=== PATIENT | male | born 1960 | race African-American/Black ===

== ENCOUNTER 2019-01-20 10:53 | Emergency (ER) | payer MEDICAID ==
[~2019-01-20] VITALS: Ht 182.9 cm; Wt 90.7 kg
[~2019-01-20 10:53] MED LIST: ACETAMINOPHEN-1 EAC1 ORAL; AUGMENTIN 875-1 EAC1 ORAL; BACTRIM DS TAB1 EAC1 ORAL; CLINDAMYCIN HC300 MG ORAL; FLONASE1 SPRAYS NASAL; KEFLEX500 MG ORAL; NKM; PRILOSEC OTC20 MG ORAL; TRAMADOL HCL50 MG ORAL
[2019-01-20 11:15] VITALS: BP 152/75
--- NOTE | 2019-01-20 11:16 | NUR ---
ED Nurse Note: Pt from home came in due to dizziness. Per pt, he woke up this morning and started to have a ''spinning sensation" and diaphoresis with nausea. Admits that he has hx of vertigo. Pt is AAO x4, ambulatory with non labored breathing.
[2019-01-20] MEDS ORDERED: Meclizine 25mg tab ORAL PRN (11:45)
--- NOTE | 2019-01-20 11:50 | NUR ---
ED Nurse Note: Blood/urine collected then sent.
--- NOTE | 2019-01-20 11:53 | Emergency Room Report ---
History of Present Illness General Chief Complaint: Dizziness Source: Patient Present Illness HPI 58-year-old male with no major medical problems other than remote history of peripheral vertigo 15 years ago presents with room spinning dizziness, nausea, vomiting one episode, and diaphoresis that occurred this morning when he woke up. He denies any slurred speech, numbness, tingling, weakness, fevers, headaches, blurred vision, any other symptoms other than does report occasional urinary frequency but attributes it to drinking plenty of water. He has not tried any medications for symptoms, and reports feeling better from his vertigo when he stays still, worse with movement. Allergies: Coded Allergies: CHLORZOXAZONE (Unverified Adverse Reaction, Intermediate, 12/10/14) DIZZINESS Patient History Past Medical History: see triage record Reviewed Nursing Documentation: PMH: Agreed; PSxH: Agreed Nursing Documentation-PMH Past Medical History: No Stated History Hx Asthma: Yes Hx Gastrointestinal Problems: Yes - ACID REFLUX Review of Systems All Other Systems: negative except mentioned in HPI Physical Exam Vital Signs Date Time Temp Pulse Resp B/P (MAP) Pulse Ox O2 Delivery O2 Flow Rate FiO2 01/20/19 11:06 97.7 65 16 97 Room Air 01/20/19 11:15 152/75 Sp02 EP Interpretation: reviewed, normal General Appearance: no apparent distress, alert, non-toxic Head: normocephalic Eyes: bilateral eye normal inspection, bilateral eye PERRL, bilateral eye EOMI ENT: normal ENT inspection, hearing grossly normal, normal pharynx, no angioedema, normal voice, moist mucus membranes Neck: normal inspection, full range of motion, supple, supple/symm/no masses Respiratory: chest non-tender, lungs clear, normal breath sounds, chest symmetrical, palpation of chest normal Cardiovascular #1: normal peripheral pulses, regular rate, rhythm Cardiovascular #2: 2+ radial (R), 2+ radial (L) Gastrointestinal: normal inspection, non tender, soft, no mass, no guarding, no rebound Rectal: deferred Genitourinary: normal inspection, no CVA tenderness Musculoskeletal: back normal, gait/station normal, normal range of motion, non- tender, no calf tenderness Neurologic: alert, responsive, 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, motor strength/tone normal, sensory intact, cerebellar normal, speech normal Psychiatric: judgement/insight normal, memory normal, mood/affect normal Skin: normal color, no rash, warm/dry, normal turgor Lymphatic: no adenopathy Medical Decision Making Diagnostic Impression: Primary Impression: Vertigo ER Course Patient with no risk factors for central vertigo presents with room spinning dizziness, has had a fairly unremarkable workup, given Zofran, meclizine, has normal neuro exam, do not suspect central vertigo, has had improvement here, able ambulate without difficulty, will discharge with meclizine, PMD follow-up, diagnosis vertigo. Ct head showed sinusitis, UA with trace blood and LE positive with few WBCs, recommend PMD f/u. EKG Diagnostic Results EKG Time: 11:22 EP Interpretation: no stemi Rate: normal Rhythm: NSR ST Segments: no acute changes ASA given to the pt in ED: No Rhythm Strip Diag. Results Rhythm Strip Time: 11:51 EP Interpretation: yes Rate: 61 Rhythm: NSR, no PVC's, no ectopy Chest X-Ray Diagnostic Results Chest X-Ray Diagnostic Results : Chest X-Ray Ordered: Yes # of Views/Limited/Complete: 1 View Indication: Other - dizziness EP Interpretation: Yes Interpretation: no consolidation, no effusion, no pneumothorax, no acute cardiopulmonary disease Impression: No acute disease Electronically Signed by: Farzad Cruz MD CT/MRI/US Diagnostic Results CT/MRI/US Diagnostic Results : Imaging Test Ordered: noncon ct head Last Vital Signs Date Time Temp Pulse Resp B/P (MAP) Pulse Ox O2 Delivery O2 Flow Rate FiO2 01/20/19 11:16 65 16 Room Air 01/20/19 11:15 97.7 152/75 97 Disposition: HOME, SELF-CARE Condition: Stable FARZAD CRUZ M.D January 20, 2019 11:53
--- NOTE | 2019-01-20 12:04 | NUR ---
ED Nurse Note: Pt taken to CT via danielle.
[2019-01-20 12:27] LABS: APPEARANCE,URINE CLEAR; BILIRUBIN, URINE NEGATIVE (NEGATIVE); COLOR,URINE PALE YELLOW; GLUCOSE, URINE (UA) NEGATIVE (NEGATIVE); KETONES,URINE NEGATIVE (NEGATIVE); LEUKOCYTE ESTERASE ,URINE 1+ (NEGATIVE); NITRITE,URINE NEGATIVE (NEGATIVE); PH,URINE 7 (4.5-8.0); PROTEIN,URINE 2+ (NEGATIVE); UROBILINOGEN,URINE NORMAL MG/DL (0.0-1.0)
[2019-01-20 12:29] LABS: BASOPHILS % (AUTO) 1.1 % (0.0-2.0); EOSINOPHILS % (AUTO) 4.4 % (0.0-3.0); HEMATOCRIT 43.8 % (42.0-52.0); HEMOGLOBIN 14.8 G/DL (14.2-18.0); MEAN CORPUSCULAR VOLUME 88 FL (80-99); MONOCYTES % (AUTO) 6.5 % (1.0-10.0); NEUTROPHILS % (AUTO) 72.1 % (45.0-75.0); PLATELET COUNT 264 K/UL (150-450); RED CELL DISTRIBUTION WIDTH 11.9 % (11.6-14.8)
[2019-01-20 12:38] LABS: ANION GAP 8 mmol/L (5-15); BLOOD UREA NITROGEN 17 mg/dL (7-18); CALCIUM 9.4 MG/DL (8.5-10.1); CARBON DIOXIDE 29 MMOL/L (21-32); CHLORIDE 103 MMOL/L (98-107); CREATININE 1.3 MG/DL (0.55-1.30); POTASSIUM 4.2 MMOL/L (3.5-5.1); SODIUM 140 MMOL/L (136-145)
[2019-01-20 12:43] LABS: ALANINE AMINOTRANSFERASE 28 U/L (12-78); ALBUMIN 3.7 G/DL (3.4-5.0); ALKALINE PHOSPHATASE 97 U/L (46-116); ASPARTATE AMINO TRANSFERASE 26 U/L (15-37); BILIRUBIN,TOTAL 0.3 MG/DL (0.2-1.0)
[2019-01-20] MEDS ORDERED: MECLIZINE HCL25 M1 ORAL (13:23)
[2019-01-20] MEDS ORDERED: CIPROFLOXACIN500 M2 ORAL (13:23)
[2019-01-20 13:36] VITALS: BP 148/65
--- NOTE | 2019-01-20 13:39 | NUR ---
ER DISCHARGE NOTE: Patient is cleared to be discharged per ERMD, pt is aox4, on room air, with stable vital signs. pt was given dc and prescription instructions, pt was able to verbalize understanding, pt id band and iv site removed without complications. pt is able to ambulate with steady gait. pt took all belongings.
--- NOTE | 2019-01-20 13:54 | Diagnostic Imaging Report ---
Indication: Headache Technique: Contiguous 5 mm thick transaxial imaging of the head obtained in a Siemens Sensation [address] scanner. Soft tissue and bone windows generated. Automatic Exposure Control was utilized. Total Dose length Product (DLP): 1471.[address] Dose Index Volume (CTDIvol): 70.38 mGy Comparison: none Findings: The size and configuration of the cortical sulci, basal cisterns, and ventricles are within normal limits for age. There is no mass effect, midline shift, or edema identified. There is no evidence of acute hemorrhage or abnormal intra-axial or extra-axial fluid collections. The bones and soft tissues are unremarkable. Mucosal thickening demonstrated within portions of the paranasal sinuses especially the ethmoid sinus and left maxillary sinus. Impression: No mass effect, edema or acute bleed. Sinusitis The CT scanner at [facility] is accredited by the [employer] and the scans are performed using dose optimization techniques as appropriate to a performed exam including Automatic Exposure control.
--- NOTE | 2019-01-20 13:54 | Diagnostic Imaging Report ---
Indication: Dyspnea Comparison: None A single view chest radiograph was obtained. Findings: Cardiomediastinal appearance is within normal limits for age. The lungs are clear. Pulmonary vascularity is appropriate. The diaphragmatic contour is smooth and costophrenic angles are sharp. No pleural effusions are identified. The bones are unremarkable. Impression: No acute findings
== END 2019-01-20 13:39 | disposition home or self-care (01) ==
LOC: EMR 11:51
DX: R42 Dizziness and giddiness (principal); R11.2 Nausea with vomiting, unspecified; Z88.8 Allergy status to other drugs, medicaments and biological substances; K21.9 Gastro-esophageal reflux disease without esophagitis
CPT/HCPCS: 36415; 70450; 71045; 80053; 81001; 84484; 85025; 96374; 99284; J2405; J7040

== ENCOUNTER 2019-12-24 02:09 | Emergency (ER) | payer MEDICAID ==
[~2019-12-24] VITALS: Ht 182.9 cm; Wt 86.2 kg
[~2019-12-24 02:09] MED LIST changes: +CIPROFLOXACIN500 M2 ORAL; +MECLIZINE HCL25 M1 ORAL
--- NOTE | 2019-12-24 02:22 | NUR ---
ED Nurse Note: Patient walked in from home d/t right leg pain for 3 weeks. Patient aao x 4 and ambulatory but with unsteady gait. Patient stable during assessment. Addendum: 12/24/19 at 0227 by IOROPEL ED Nurse Note: Patient walked in from home d/t right leg pain 9/10 aching nonradiating for 3 weeks. Patient aao x 4 and ambulatory but with unsteady gait. Patient stable during assessment.
--- NOTE | 2019-12-24 02:31 | Emergency Room Report ---
History of Present Illness General Chief Complaint: Lower Extremity Injury Source: Patient Present Illness HPI Disclaimer: Please note that this report is being documented using DRAGON technology. This can lead to erroneous entry secondary to incorrect interpretation by the dictating instrument. HPI: 59-year-old male with no reported medical history presents for evaluation of right knee pain and leg swelling. Symptoms have been intermittent over the past 3 weeks. The patient states he was going up the stairs when he suddenly felt a laxity in his knee and a popping sensation. Noted pain and swelling around the knee and in the lower leg. It fluctuates and appears to improve with NSAIDs and ice. He is able to bear weight and ambulate though this causes increased pain and swelling. Complaining of pain over the calf more than in the knee at this time. No prior history of knee pain, trauma, gout. Denies any fever, chills. No recent immobilization, no long distance travel, no prior PE/DVT. PMH: Denies PSH: Denies Allergies: Reviewed Social Hx: Denies drug or alcohol abuse Allergies: Coded Allergies: CHLORZOXAZONE (Unverified Adverse Reaction, Intermediate, 12/10/14) DIZZINESS COVID-19 Screening Contact w/high risk pt: No Recent Travel to affected area: No Experienced COVID-19 symptoms?: No Nursing Documentation-PMH Hx Asthma: Yes Hx Gastrointestinal Problems: Yes - ACID REFLUX Review of Systems All Other Systems: negative except mentioned in HPI Physical Exam Vital Signs Date Time Temp Pulse Resp B/P (MAP) Pulse Ox O2 Delivery O2 Flow Rate FiO2 12/24/19 02:15 98.1 81 19 142/85 (104) 96 Room Air General: Awake and alert, no acute distress HEENT: NC/AT. EOMI. Resp: Normal work of breathing Skin: Intact. No abrasions, laceration or rash over the exposed skin MSK: Normal tone and bulk. Moving all extremities. Mild edema above the patella. Nontender. Patella in anatomic position. No laxity on varus or valgus testing. No laxity on anterior posterior drawer sign. The right calf is enlarged as compared to the left. No significant pitting edema in the lower extremity. Brisk capillary refill and palpable PT pulses bilaterally. No overlying edema or erythema around the knee. No warmth. No skin breakdown. Neuro: Awake and alert. Mentating appropriately Medical Decision Making Diagnostic Impression: Primary Impression: Knee effusion Additional Impression: Knee pain ER Course 59-year-old male presents for evaluation of knee pain and leg swelling intermittent over the past 3 weeks. Differential includes is not limited to fracture, dislocation, osteoarthritis, rheumatoid arthritis, gout, pseudogout, DVT, septic arthritis, bursitis, strain, sprain, muscle cramps. Over concern of possible DVT of lower extremity ultrasound was obtained which shows patent deep veins though a anterior fluid collection above the patella and across the proximal calf was noted. X-ray also noted a moderate joint effusion but no osseous injury. Overall, the patient is nontoxic-appearing and the knee itself it shows no sign of infection. There is no overlying skin changes, no heat and the patient has good range of motion. Clinically, the patient is presenting more as a bursitis, meniscal injury or other soft tissue injury as opposed to a deep space infection. I had planned on performing an arthrocentesis however the patient declined opting for conservative treatment at this time and stated that if any concerning symptoms such as fever, swelling, redness or worsening pain arose he would return to the emergency department and undergo arthrocentesis. I believe this is reasonable as overall he is very well- appearing and physical exam is more consistent with a ligamentous or inflammatory process. Dash wrap was applied for compression and comfort and the patient noted improvement. He is ambulating with a steady gait and feels reassured. Will discharge home with close follow-up. He understands and agrees with this treatment plan. Other X-Ray Diagnostic Results Other X-Ray Diagnostic Results : X-Ray ordered: Right knee # of Views/Limited Vs Complete: Complete Indication: Pain EP Interpretation: Yes Interpretation: no dislocation, no fractures, other - Soft tissue swelling Impression: Other - Soft tissue swelling with small effusion Electronically Signed by: Electronically signed by Dr. Monster Mclain Last Vital Signs Date Time Temp Pulse Resp B/P (MAP) Pulse Ox O2 Delivery O2 Flow Rate FiO2 12/24/19 02:15 98.1 81 19 142/85 (104) 96 Room Air Disposition: HOME, SELF-CARE Condition: Stable Scripts Ibuprofen* (MOTRIN*) 600 Mg Tablet 600 MG ORAL Q6H PRN for For Pain, #30 TAB 0 Refills Prov: Monster Mclain MD 12/24/19 Monster Mclain MD Dec 24, 2019 02:31
[2019-12-24] MEDS ORDERED: IBUPROFEN600 M1 ORAL (04:52)
[2019-12-24 04:54] VITALS: BP 140/82
--- NOTE | 2019-12-24 04:54 | NUR ---
ER DISCHARGE NOTE: Patient is cleared to be discharged per ERMD, pt is aox4, on room air, with stable vital signs. pt was given dc and prescription instructions, pt was able to verbalize understanding, pt id band removed. pt is able to ambulate. pt took all belongings. pt stable upon discharge.
--- NOTE | 2019-12-24 06:42 | Diagnostic Imaging Report ---
EXAM: XR Right Knee, 3 Views CLINICAL HISTORY: INJ TECHNIQUE: Three views of the right knee. COMPARISON: No relevant prior studies available. FINDINGS: Bones/joints: No acute fracture. No dislocation. Enthesophyte at the superior patella. Mild osteoarthrosis at the patellofemoral compartment. Soft tissues: Moderate joint effusion. IMPRESSION: No acute osseous abnormalities. Moderate joint effusion.
--- NOTE | 2019-12-24 06:42 | Diagnostic Imaging Report ---
EXAM: US Duplex Right Lower Extremity Veins CLINICAL HISTORY: DVT TECHNIQUE: Real-time duplex ultrasound scan of the right lower extremity veins integrating B-mode two-dimensional vascular structure, Doppler spectral analysis, color flow Doppler imaging and compression. COMPARISON: No relevant prior studies available. FINDINGS: Deep veins: Reflux noted in the right popliteal vein. No DVT in the visualized common femoral, femoral, proximal deep femoral or popliteal veins. The veins demonstrate normal color flow, are normally compressible, with normal phasic flow and/or augmentation response. Superficial veins: Unremarkable. No thrombus in the visualized great saphenous vein. Soft tissues: Fluid collection in the right calf and anterior aspect of the knee, nonspecific. These may represent areas of evolving hematoma. Follow-up recommended to exclude underlying abscess/abnormality No popliteal cyst. Lymph nodes: Small lymph node in the right inguinal region measuring 8 x 5 x 10 mm. IMPRESSION: 1. Negative for DVT. 2. Complex fluid in the anterior aspect of the knee and calf.
== END 2019-12-24 04:54 | disposition home or self-care (01) ==
LOC: EMR 02:40
DX: M25.561 Pain in right knee (principal); M25.461 Effusion, right knee; Z88.8 Allergy status to other drugs, medicaments and biological substances; K21.9 Gastro-esophageal reflux disease without esophagitis
CPT/HCPCS: 73562; 93971; Z7502; 99284

== ENCOUNTER 2020-04-20 11:19 | Emergency (ER) | payer MEDICAID ==
[~2020-04-20] VITALS: Ht 185.4 cm; Wt 90.7 kg
[~2020-04-20 11:19] MED LIST changes: +IBUPROFEN600 M1 ORAL
[2020-04-20 11:30] VITALS: BP 141/78
[2020-04-20] MEDS ORDERED: BACTRIM DS TAB1 EAC1 ORAL (11:59)
--- NOTE | 2020-04-20 11:59 | Emergency Room Report ---
History of Present Illness General Chief Complaint: Animal Bite Source: Patient Present Illness HPI 59-year-old male presents with abscess to the right thigh, patient reports maybe he was bitten or pricked by something at work, he states it started forming about 5 days ago with drainage, he endorses sharp pain aggravated with touch alleviated when not touching it severity is moderate, intermittent no fevers no chills patient presents for evaluation and treatment Allergies: Coded Allergies: CHLORZOXAZONE (Unverified Adverse Reaction, Intermediate, 12/10/14) DIZZINESS COVID-19 Screening Contact w/high risk pt: No Recent Travel to affected area: No Experienced COVID-19 symptoms?: No COVID-19 Testing performed 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 Patient History Past Medical History: see triage record Reviewed Nursing Documentation: PMH: Agreed; PSxH: Agreed Nursing Documentation-PMH Past Medical History: No History, Except For Hx Asthma: Yes Hx Gastrointestinal Problems: Yes - ACID REFLUX Review of Systems All Other Systems: negative except mentioned in HPI Physical Exam Vital Signs Date Time Temp Pulse Resp B/P (MAP) Pulse Ox O2 Delivery O2 Flow Rate FiO2 04/20/20 11:27 98.1 84 17 141/78 (99) 100 Room Air General Appearance: well appearing, no apparent distress Head: normocephalic, atraumatic ENT: hearing grossly normal, normal voice Neck: full range of motion, supple Respiratory: no respiratory distress, speaking full sentences Musculoskeletal: other - Right lower extremity: Right thigh anterior aspect abscess formation noted with surrounding cellulitis measuring 2 x 2 cm Neurologic: alert, normal gait Psychiatric: mood/affect normal Skin: no rash Procedures Incision and Drainage Incision and Drainage : Consent: Verbal Site: Right thigh Blade Size: 11 I & D Procedure: betadine prep, sterile drapes applied, sterile dressing applied Wound Location: lower extremity Wound's Depth, Shape: superficial Wound Length (cm): 1 Wound Explored: contaminated - Mild pus noted Irrigated w/ Saline (ccs): 50 Anesthesia: Lidocaine w/ Epi Volume Anesthetic (ccs): 5 Patient Tolerated: Well Complications: None Medical Decision Making Diagnostic Impression: Primary Impression: Abscess ER Course 59-year-old male presents with abscess, minimal pus extracted, patient most likely with superficial cellulitis will provide patient with antibiotics follow- up with PCP strict return precautions were discussed Last Vital Signs Date Time Temp Pulse Resp B/P (MAP) Pulse Ox O2 Delivery O2 Flow Rate FiO2 04/20/20 11:30 98.1 84 17 141/78 100 Room Air Disposition: HOME, SELF-CARE Condition: Stable Scripts Trimethoprim/Sulfamethoxazole 160/800* (BACTRIM DS TABLET*) 1 Each Tablet 1 TAB ORAL Q12H, #20 TAB 0 Refills Prov: Magdiel Yanez MD 04/20/20 Referrals: [facility]. [facility] Patient Instructions: Abscess, [id number], Cellulitis, [id number] Additional Instructions: The patient was provided with discharge instructions, notified to follow-up with a primary care doctor and or specialist in the next 24-48 hours, and to return to the ED if they have worsening of their symptoms. Please note that this report is being documented using Basha technology. This can lead to erroneous entry secondary to incorrect interpretation by the dictating instrument. Magdiel Yanez MD Apr 20, 2020 11:59
[2020-04-20] MEDS ORDERED: Lidocaine 1% 10mg/ml/Epi 0.005mg/ml 30ml vial INJ ONE (12:00)
[2020-04-20 12:14] VITALS: BP 141/78
== END 2020-04-20 12:35 | disposition home or self-care (01) ==
LOC: EMR 12:14
DX: L02.415 Cutaneous abscess of right lower limb (principal); J45.909 Unspecified asthma, uncomplicated; K21.9 Gastro-esophageal reflux disease without esophagitis; Z88.8 Allergy status to other drugs, medicaments and biological substances
CPT/HCPCS: 10060; Z7502; 99283

== ENCOUNTER 2020-04-30 14:55 | Emergency (ER) | payer MEDICAID ==
[~2020-04-30] VITALS: Ht 182.9 cm; Wt 87.1 kg
[2020-04-30 15:12] VITALS: BP 137/84
--- NOTE | 2020-04-30 15:13 | NUR ---
ED Nurse Note:pt. came from home with c/o fever for 2 days and rash on his chest, no respiratory symptoms
[2020-04-30] MEDS ORDERED: EPIPEN 2-P0.3 MG/0.3 IM (15:24)
[2020-04-30] MEDS ORDERED: BENADRYL ALLERG25 M1 PO (15:24)
--- NOTE | 2020-04-30 15:24 | Emergency Room Report ---
History of Present Illness General Chief Complaint: Skin Rash/Abscess Source: Patient Present Illness HPI 59-year-old male presents with diffuse itchy rash to anterior chest. Of note, he just finished a 10-day course of Bactrim for right leg abscess/cellulitis. Denies nausea, vomiting, shortness of breath, wheezing, stridor, drooling, or other symptoms. Denies chest pain, hemoptysis, leg swelling, fever. A second Bactrim, no new medication changes. No new dietary changes, soaps, or detergents. The patient's symptoms were gradual onset, severity was moderate, duration since 1 day. Quality: Itchy Past medical history: Right thigh abscess Past surgical history: Denies Smoking: Denies Alcohol use: Denies Drug use: Denies Review of systems: CONST: No fevers or chills, No night sweats PULMONARY: No productive cough, No shortness of breath CARDIAC: No chest pain, No palpitations GI: No vomiting, No diarrhea , No melena_or_BRBPR : No dysuria, No hematuria, No discharge NEURO: No new_focal_weakness_or_numbness, No confusion, No vision changes 14 point Review of Systems is otherwise negative except per HPI Physical Exam: GENERAL: Awake_alert_ nontoxic, no acute distress Spo2 98% on RA -normal EYES: Extraocular muscles are intact. Conjunctivae clear. Lids without swelling ENT: External nose and ear normal_in_appearance. Oropharynx clear. Head_ atraumatic, Moist_oral_mucosa NECK: No JVD. No meningismus. No thyromegaly. Supple. Trachea midline RESP: Normal respiratory effort. Symmetric rise. No stridor. Clear_to_ auscultation_No_rales_No_wheezes CARDIAC: Regular rate and regular rhytm. No_significant pedal edema. ABDOMEN: Soft. Nondistended. Nontender_No_rebound_or_guarding. MSK: Normal muscle tone, without rigidity. Extremities without asymmetric deformity or swelling. SKIN: Warm and dry. No visible cyanosis or pallor NEUROLOGIC: Alert, oriented x3. Motor_and_sensation_grossly_intact. No truncal ataxia. Gait_normal Psych: Normal mood and affect, normal judgment and insight - COORDINATION OF CARE Case was discussed with: Patient Medical Decision Making/Plan: Initial VSS WNL. Airway is intact with no stridor, drooling, or increased WOB. No oral, tongue or lip swelling noted. Patient appears to be presenting with mild to moderate allergic reaction, there is no evidence of angioedema, no oral involvement, no difficulty breathing or nausea vomiting. Patient is nontoxic and well-appearing the patient is tolerating fluids. The findings are minimal and due to nonprogression of symptoms here the patient is safe to discharge home. The patient feels comfortable with plan and will return immediately if symptoms begin to worsen. Patient given a dose of steroids and Benadryl here in the emergency department. Patient will be discharged with an EpiPen and Benadryl. Patient was instructed to avoid all potential allergic stimuli in the future. High suspicion that sulfa antibiotic was the culprit for the allergic reaction. I have instructed patient not to take any sulfa medications in the future due to this potential allergy. The patient was instructed to avoid potential precipitating factor and to follow up with their regular physician for referral to clinical documentation improvement specialist for definitive allergy testing. Pertinent results reviewed with the patient. I educated the patient on the current treatment plan including the risks, benefits, and alternatives. I also discussed the extent and limitations of the current evaluation. The patient expressed understanding and agreement with plan. I recommended PMD follow-up within 1-2 days. Also advised that the patient return to the Emergency Department as soon as possible if they experience any new, persistent, or worsening symptoms. 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 Nursing Documentation-PMH Past Medical History: No History, Except For Hx Asthma: Yes Hx Gastrointestinal Problems: Yes - ACID REFLUX Physical Exam Vital Signs Date Time Temp Pulse Resp B/P (MAP) Pulse Ox O2 Delivery O2 Flow Rate FiO2 04/30/20 15:09 99.9 79 17 137/84 (101) 98 Room Air Sp02 EP Interpretation: reviewed, normal Medical Decision Making Diagnostic Impression: Primary Impression: Allergic reaction caused by a drug Additional Impression: Urticaria Last Vital Signs Date Time Temp Pulse Resp B/P (MAP) Pulse Ox O2 Delivery O2 Flow Rate FiO2 04/30/20 15:12 99.9 79 17 137/84 98 Room Air Disposition: HOME, SELF-CARE Admit Decision Time: 15:22 Condition: Stable Scripts Diphenhydramine Hcl (BENADRYL ALLERGY) 25 Mg Tablet 25 MG PO Q6HR for urticaria for 10 Days, #20 TAB Prov: Hannah Asencio D.O. 04/30/20 Epinephrine (Epipen 2-Dileep) 0.3 Mg/0.3 Ml Auto.injct 0.3 MG IM ONCE for anaphylaxis for 1 Day, #2 EA Prov: Hannah Asencio D.O. 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 Do not take sulfa antibiotics in the future as this is likely the reason you are developing an allergy. Use EpiPen for emergencies as discussed Follow-up with your doctor sooner if your condition requires a more timely clinical reevaluation. Return to the emergency department immediately if you feel that your condition is worsening or if you have any new or concerning symptoms. Review your discharge instructions and take any prescriptions given as instructed. Hannah Asencio D.O. Apr 30, 2020 15:24
--- NOTE | 2020-04-30 15:30 | NUR ---
ED Nurse Note: Pt cleared by health care Provider for discharge. DC instructions/prescription was given and explained to pt and verbalized understanding of teachings. All medical deviecs such as ID band removed. Pt is AAO x4, ambulatory and left with all personal belongings.
== END 2020-04-30 15:40 | disposition home or self-care (01) ==
LOC: EMR 15:34
DX: R21 Rash and other nonspecific skin eruption (principal); L50.9 Urticaria, unspecified; T78.40XA Allergy, unspecified, initial encounter; X58.XXXA Exposure to other specified factors, initial encounter
CPT/HCPCS: J8540; Z7502; 99282

== ENCOUNTER 2020-07-20 01:52 | Emergency (ER) | payer MEDICAID ==
[~2020-07-20] VITALS: Ht 182.9 cm; Wt 95.3 kg
[~2020-07-20 01:52] MED LIST changes: +BENADRYL ALLERG25 M1 PO; +EPIPEN 2-P0.3 MG/0.3 IM
[2020-07-20 02:02] VITALS: BP 149/81
--- NOTE | 2020-07-20 02:04 | NUR ---
Nurse Note: Pt walked in c/o RT ear pain for 3 days. Pt stated throbbing pain. Pt denies trauma, denies hearing loss. Pt travels to the RT side of throat. Pt took motrin around 1800, helped with s/s but pain is back
[2020-07-20] MEDS ORDERED: IBUPROFEN600 M1 ORAL (02:13)
[2020-07-20] MEDS ORDERED: AMOXICILLIN500 MG ORAL (02:13)
--- NOTE | 2020-07-20 02:13 | Emergency Room Report ---
History of Present Illness General Chief Complaint: Earache Source: Patient Present Illness [facility] This is a 59-year-old male with history of asthma. He presents with complaint of right ear pain. Onset for last 3 days. Pain is to the front of his ear tracking down to the submental area. Pain is 7 out of 10. No fever chills but no cough or congestion. He started may be wax so he use some [id number]-euyslso spray and he became dizzy. Denies any other complaint. Allergies: Coded Allergies: CHLORZOXAZONE (Unverified Adverse Reaction, Intermediate, 12/10/14) DIZZINESS COVID-19 Screening Contact w/high risk pt: No Recent Travel to affected area: No Experienced COVID-19 symptoms?: No COVID-19 Testing performed CHEF UNDER: No Patient History Past Medical History: see triage record, old chart reviewed, asthma Past Surgical History: none Pertinent Family History: none Social History: Denies: smoking Immunizations: other Reviewed Nursing Documentation: PMH: Agreed; PSxH: Agreed Nursing Documentation-PMH Hx Asthma: Yes Hx Gastrointestinal Problems: Yes - ACID REFLUX Review of Systems Eye: Denies: eye pain, blurred vision ENT: Reports: ear pain; Denies: nose congestion, throat swelling Respiratory: Denies: cough, shortness of breath Cardiovascular: Denies: chest pain, palpitations Gastrointestinal: Denies: abdominal pain, diarrhea, nausea, vomiting Musculoskeletal: Denies: back pain, joint pain Skin: Denies: rash Neurological: Denies: headache, numbness Endocrine: Denies: increased thirst, increased urine Hematologic/Lymphatic: Denies: easy bruising All Other Systems: negative except mentioned in HPI Physical Exam Vital Signs Date Time Temp Pulse Resp B/P (MAP) Pulse Ox O2 Delivery O2 Flow Rate FiO2 07/20/20 01:57 98.8 60 16 149/81 (103) 98 Room Air Vitals with high blood pressure Sp02 EP Interpretation: reviewed, normal General Appearance: well appearing, no apparent distress, alert Head: normocephalic, atraumatic Eyes: bilateral eye PERRL, bilateral eye EOMI ENT: hearing grossly normal, normal pharynx Neck: full range of motion, supple, no meningismus Respiratory: chest non-tender, lungs clear, normal breath sounds Cardiovascular #1: regular rate, rhythm, no murmur Gastrointestinal: normal bowel sounds, non tender, no mass, no organomegaly, no bruit, non-distended Musculoskeletal: back normal, normal range of motion, gait/station normal Psychiatric: mood/affect normal Medical Decision Making Diagnostic Impression: Primary Impression: Earache, right ER Course Patient with a right earache. I do not see any obvious otitis media or externa. This could be a thyroglossal cyst. No evidence of his obvious salivary stone. Will discharge home. Last Vital Signs Date Time Temp Pulse Resp B/P (MAP) Pulse Ox O2 Delivery O2 Flow Rate FiO2 07/20/20 02:02 98.8 60 16 149/81 98 Room Air Status: unchanged Disposition: HOME, SELF-CARE Condition: Stable Scripts Ibuprofen* (MOTRIN*) 600 Mg Tablet 600 MG ORAL Q6H PRN for For Pain, #30 TAB 0 Refills Prov: Huang Khan MD 07/20/20 Amoxicillin* (AMOXIL*) 500 Mg Capsule 500 MG ORAL THREE TIMES A DAY, #21 CAP Prov: Huang Khan MD 07/20/20 Referrals: [facility],REFERRING (PCP) Patient Instructions: Earache Additional Instructions: Follow-up with your DrBrian In 7 days. Return if symptoms worsen. Huang Khan MD Jul 20, 2020 02:13
[2020-07-20 02:20] VITALS: BP 149/81
--- NOTE | 2020-07-20 02:20 | NUR ---
ER DISCHARGE NOTE: Patient is cleared to be discharged per ERMD, pt is aox4, on room air, with stable vital signs. pt was given dc and prescription instructions, pt was able to verbalize understanding, pt id band removed without complications. pt is able to ambulate with steady gait. pt took all belongings.
== END 2020-07-20 02:20 | disposition home or self-care (01) ==
LOC: EMR 02:01
DX: H92.01 Otalgia, right ear (principal); J45.909 Unspecified asthma, uncomplicated; K21.9 Gastro-esophageal reflux disease without esophagitis
CPT/HCPCS: 99282

== ENCOUNTER 2020-07-22 21:08 | Emergency (ER) | payer MEDICAID ==
[~2020-07-22] VITALS: Ht 182.9 cm; Wt 95.3 kg
[~2020-07-22 21:08] MED LIST changes: +AMOXICILLIN500 MG ORAL
[2020-07-22 21:12] VITALS: BP 133/58
--- NOTE | 2020-07-22 21:12 | NUR ---
ED Nurse Note: pt walked into ED from home c/o CP 04/17 onset today about 2 hours ago pt c/o acid reflux that goes up to his nostrils and ludwig. Pt is AAOx4, breathing even and unlabored. Sinus leah on the monitor HR 54-59, other vitals stable as documented.
--- NOTE | 2020-07-22 21:35 | NUR ---
ED Nurse Note: blood and urine collected and sent to lab
--- NOTE | 2020-07-22 21:38 | NUR ---
ED Nurse Note: janitorial tech at bedside performing CXR
[2020-07-22 21:53] LABS: BASOPHILS % (AUTO) 1.4 % (0.0-2.0); EOSINOPHILS % (AUTO) 4.1 % (0.0-3.0); HEMATOCRIT 41.2 % (42.0-52.0); HEMOGLOBIN 13.7 G/DL (14.2-18.0); LYMPHOCYTES % (AUTO) 35.2 % (20.0-45.0); MEAN CORPUSCULAR VOLUME 91 FL (80-99); MONOCYTES % (AUTO) 7.1 % (1.0-10.0); NEUTROPHILS % (AUTO) 52.2 % (45.0-75.0); PLATELET COUNT 264 K/UL (150-450); RED BLOOD COUNT 4.54 M/UL (4.70-6.10); RED CELL DISTRIBUTION WIDTH 12.3 % (11.6-14.8); WHITE BLOOD COUNT 10.4 K/UL (4.8-10.8)
[2020-07-22 22:07] LABS: CALCIUM 8.5 MG/DL (8.5-10.1); CREATININE 1.9 MG/DL (0.55-1.30); POTASSIUM 3.9 MMOL/L (3.5-5.1)
--- NOTE | 2020-07-22 22:08 | Diagnostic Imaging Report ---
EXAM: XR Chest, 1 View CLINICAL HISTORY: CP TECHNIQUE: Frontal view of the chest. COMPARISON: None FINDINGS: Lungs: Unremarkable. No consolidation. Pleural space: Unremarkable. No pneumothorax. Heart: Unremarkable. No cardiomegaly. Mediastinum: Unremarkable. Bones/joints: Unremarkable. IMPRESSION: No acute cardiopulmonary process.
[2020-07-22 22:14] LABS: ALBUMIN 3.6 G/DL (3.4-5.0); BILIRUBIN,TOTAL 0.3 MG/DL (0.2-1.0)
[2020-07-22] MEDS ORDERED: Aspirin Baby 81mg ORAL ONE (22:15)
--- NOTE | 2020-07-22 22:33 | Emergency Room Report ---
History of Present Illness General Chief Complaint: Chest Pain Source: Patient Present Illness HPI 59-year-old male with no known past medical history here with chest pain. Patient says that earlier tonight he began to have what he believed to be acid reflux. He was having some epigastric abdominal pain and vomited 1 time nonbilious nonbloody. Says that he then began to have a pressure-like chest pain that was in the substernal region and radiated to his neck. Vomited again here in the emergency department. At this time he is asymptomatic. He has never had these symptoms before. Denies headaches, palpitations, shortness of breath, back pain, abdominal pain, diarrhea, dysuria. Does not smoke. No known family history of heart disease. 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 Nursing Documentation-[facility] Past Medical History: No History, Except For Hx Asthma: Yes Hx Gastrointestinal Problems: Yes - ACID REFLUX Review of Systems All Other Systems: negative except mentioned in HPI Physical Exam Vital Signs Date Time Temp Pulse Resp B/P (MAP) Pulse Ox O2 Delivery O2 Flow Rate FiO2 07/22/20 21:10 97.9 63 18 173/84 (113) 98 Room Air Sp02 EP Interpretation: reviewed, normal General Appearance: no apparent distress, alert, non-toxic Head: normocephalic, atraumatic Eyes: bilateral eye normal inspection, bilateral eye PERRL ENT: hearing grossly normal, normal pharynx, no angioedema, normal voice Neck: full range of motion, supple/symm/no masses Respiratory: chest non-tender, lungs clear, normal breath sounds, speaking full sentences Cardiovascular #1: regular rate, rhythm, no edema Cardiovascular #2: 2+ carotid (R), 2+ carotid (L), 2+ radial (R), 2+ radial (L), 2+ dorsalis pedis (R), 2+ dorsalis pedis (L) Gastrointestinal: normal bowel sounds, non tender, soft, non-distended, no guarding, no rebound Rectal: deferred Genitourinary: normal inspection, no CVA tenderness Musculoskeletal: back normal, normal range of motion, gait/station normal, non- tender Neurologic: alert, motor strength/tone normal, oriented x3, sensory intact, responsive, speech normal Psychiatric: judgement/insight normal, memory normal, mood/affect normal, no suicidal/homicidal ideation Lymphatic: no adenopathy Medical Decision Making Diagnostic Impression: Primary Impression: Chest pain ER Course EKG: NSR, no ischemia, incomplete right bundle branch block.. No ectopy. Normal axis. Rate 59 bpm Rhythm strip: patient monitored for arrhythmias - no malignant dysrhythmias, runs of PVCs, nor pauses noted CLINICAL HISTORY: CP TECHNIQUE: Frontal view of the chest. COMPARISON: None FINDINGS: Lungs: Unremarkable. No consolidation. Pleural space: Unremarkable. No pneumothorax. Heart: Unremarkable. No cardiomegaly. Mediastinum: Unremarkable. Bones/joints: Unremarkable. IMPRESSION: No acute cardiopulmonary process. Laboratory Tests Test 07/22/20 21:25 White Blood Count 10.4 K/UL (4.8-10.8) Red Blood Count 4.54 M/UL (4.70-6.10) L Hemoglobin 13.7 G/DL (14.2-18.0) L Hematocrit 41.2 % (42.0-52.0) L Mean Corpuscular Volume 91 FL (80-99) Mean Corpuscular Hemoglobin 30.1 PG (27.0-31.0) Mean Corpuscular Hemoglobin Concent 33.2 G/DL (32.0-36.0) Red Cell Distribution Width 12.3 % (11.6-14.8) Platelet Count 264 K/UL (150-450) Mean Platelet Volume 7.8 FL (6.5-10.1) Neutrophils (%) (Auto) 52.2 % (45.0-75.0) Lymphocytes (%) (Auto) 35.2 % (20.0-45.0) Monocytes (%) (Auto) 7.1 % (1.0-10.0) Eosinophils (%) (Auto) 4.1 % (0.0-3.0) H Basophils (%) (Auto) 1.4 % (0.0-2.0) Sodium Level 140 MMOL/L (136-145) Potassium Level 3.9 MMOL/L (3.5-5.1) Chloride Level 105 MMOL/L (98-107) Carbon Dioxide Level 31 MMOL/L (21-32) Anion Gap 4 mmol/L (5-15) L Blood Urea Nitrogen 21 mg/dL (7-18) H Creatinine 1.9 MG/DL (0.55-1.30) H Estimated Glomerular Filtration Rate 44.0 mL/min (>60) Glucose Level 96 MG/DL (74-106) Calcium Level 8.5 MG/DL (8.5-10.1) Total Bilirubin 0.3 MG/DL (0.2-1.0) Aspartate Amino Transferase (AST) 22 U/L (15-37) Alanine Aminotransferase (ALT) 26 U/L (12-78) Alkaline Phosphatase 84 U/L (46-116) Troponin I 0.000 ng/mL (0.000-0.056) Total Protein 7.3 G/DL (6.4-8.2) Albumin 3.6 G/DL (3.4-5.0) Globulin 3.7 g/dL Albumin/Globulin Ratio 1.0 (1.0-2.7) 5-year-old male here with chest pain. Patient was hemodynamically stable and neurovascularly intact in the emergency department. Patient later admitted that he does smoke occasionally. CBC, CMP unremarkable. Troponin negative. EKG showed incomplete right bundle branch block but was otherwise normal. Patient had a high heart score of 4. I discussed the risks and benefits of observation in the hospital versus being discharged. Patient was agreeable to observation. Was given aspirin and Pepcid on arrival to the emergency department. To be admitted to telemetry. 2330: Patient requesting to leave AGAINST MEDICAL ADVICE. Patient says "I feel good. I will go home, but [place] [address] and I can come back if anything gets worse." Patient was told that it was my recommendation that he stays in the hospital due to his elevated heart score and concerning story for chest pain. I explained to the patient that if he were to leave AGAINST MEDICAL ADVICE that he may suffer severe morbidity and possibly even mortality. Patient says that he expressed understanding and still wished to leave AGAINST MEDICAL ADVICE. He is completely alert and oriented with normal sensorium. Patient signed out AGAINST MEDICAL ADVICE. Last Vital Signs Date Time Temp Pulse Resp B/P (MAP) Pulse Ox O2 Delivery O2 Flow Rate FiO2 07/22/20 21:12 54 18 07/22/20 21:12 97.9 133/58 98 Room Air Scripts Famotidine* (Pepcid 20mg tablet*) 20 Mg Tablet 20 MG ORAL DAILY for Gerd, #30 TAB 0 Refills Prov: Jose Rosario M.D. 07/22/20 Referrals: NON PHYSICIAN (PCP) Jose Rosario M.D. Jul 22, 2020 22:33
[2020-07-22] MEDS ORDERED: FAMOTIDINE20 MG ORAL (23:12)
[2020-07-22 23:20] VITALS: BP 130/68
--- NOTE | 2020-07-22 23:20 | NUR ---
AMA: SEE AMA FORM. Pt spoke with EDMD about the risks and benefits of hospital admission. Pt refused to stay and stated feeling better, stated "I live 5 minutes away, I'll come back if I have to." Pt agreed to sign AMA form. Pt is AAOx4 with stable vital signs, walked out with steady gait, pt took all belongings. IV line and ID band removed.
--- NOTE | 2020-07-23 15:43 | Cardiology Report ---
APPROVED REPORT EKG Measurement Heart [id number] <Conclusion> Sinus bradycardia Incomplete right bundle branch block Borderline ECG
== END 2020-07-22 23:20 | disposition left against medical advice (07) ==
LOC: EMR 21:32 → CANBEDREQ 23:55
DX: R07.9 Chest pain, unspecified (principal); J45.909 Unspecified asthma, uncomplicated; K21.9 Gastro-esophageal reflux disease without esophagitis; Z53.29 Procedure and treatment not carried out because of patient's decision for other reasons
CPT/HCPCS: 36415; 71045; 80053; 84484; 85025; 93005; Z7502; 99284